=== PATIENT | male | born 1955 | race Caucasian/White ===

== ENCOUNTER 2023-05-13 11:25 | Inpatient (IN) | payer MEDICARE ==
[~2023-05-13] VITALS: Ht 182.9 cm; Wt 75.6 kg
[2023-05-13 12:38] LABS: BASOPHILS # (AUTO) 0.1 X10'3 (0-0.2); EOSINOPHILS # (AUTO) 0.1 X10'3 (0-0.9); EOSINOPHILS % (AUTO) 1.8 % (0-6); NEUTROPHILS # (AUTO) 4.5 X10'3 (1.8-7.7)
[2023-05-13 12:39] LABS: BASOPHILS % (AUTO) 0.9 % (0-1); HEMATOCRIT 42.5 % (42.0-52.0); HEMOGLOBIN 14.2 g/dl (14.0-17.9); LYMPHOCYTES # (AUTO) 0.8 X10'3 (1.1-4.8); LYMPHOCYTES % (AUTO) 13.1 % (21-51); MEAN CORPUSCULAR HEMOGLOBIN 32.6 PG (27.0-31.0); MEAN CORPUSCULAR HGB CONC 33.5 g/dL (33.0-36.5); MEAN CORPUSCULAR VOLUME 97.2 FL (78-98); MONOCYTES # (AUTO) 0.8 X10'3 (0-0.9); MONOCYTES % (AUTO) 12.9 % (2-12); NEUTROPHILS % (AUTO) 71.3 % (42-75); PLATELET COUNT 177 X10'3 (140-440); RED BLOOD COUNT 4.37 X10'6 (4.70-6.10); RED CELL DISTRIBUTION WIDTH 13.1 % (11.5-14.5); WHITE BLOOD COUNT 6.3 X10'3 (4.5-11.0)
[2023-05-13 12:53] LABS: ALANINE AMINOTRANSFERASE 20 U/L (12-78); ALBUMIN 3.6 G/DL (3.4-5.0); ALKALINE PHOSPHATASE 68 IU/L (46-116); ANION GAP 13 (8-16); ASPARTATE AMINO TRANSFERASE 21 U/L (10-37); BILIRUBIN,TOTAL 0.6 MG/DL (0.1-1.0); BLOOD UREA NITROGEN 28 MG/DL (7-18); CALCIUM 8.8 MG/DL (8.5-10.1); CHLORIDE 107 MMOL/L (99-107); GLUCOSE 103 MG/DL (70-104); POTASSIUM 3.6 MMOL/L (3.5-5.1); SODIUM 143 MMOL/L (135-145); TOTAL CARBON DIOXIDE 23.5 MMOL/L (24-32); TOTAL PROTEIN 7.2 G/DL (6.4-8.2); eCRCL 27 ML/MIN; eGFR 23 ML/MIN
[2023-05-13 13:00] LABS: PRO BRAIN NATRIURETIC PEPTIDE 8000 PG/ML (0-125)
[2023-05-13] MEDS: aspirin 81mg tab.chew PO ONE (13:12)
[2023-05-13] MEDS: nitroGLYCERIN 0.4mg/hour patch TD ONE (13:12)
[2023-05-13] MEDS: cloNIDine 0.1 mg tablet PO ONE (14:15)
[2023-05-13] MEDS: NIFEdipine XL 30mg tablet PO ONE (15:00)
[2023-05-13] MEDS ORDERED: mag hydrox/Alum hydrox/simeth 30ml oral suspension PO PRN (15:05)
[2023-05-13] MEDS ORDERED: magnesium hydroxide 30ml (MOM) UD suspension PO PRN (15:05)
[2023-05-13] MEDS ORDERED: HYDROcodone/acetaminophen 5mg/325mg tablet PO PRN (15:05)
[2023-05-13] MEDS ORDERED: magnesium 4gm in 100ml NS 100 ML IV PRN (15:05)
[2023-05-13] MEDS ORDERED: magnesium 2GM in 50ml NS 50 ML IV PRN (15:05)
[2023-05-13] MEDS ORDERED: HYDROcodone/acetaminophen 10/325mg tab PO PRN (15:05)
[2023-05-13] MEDS ORDERED: potassium Cl 40MEQ/1/2NS 520ml 520 ML IV PRN (15:05)
[2023-05-13] MEDS: PERFLUTREN PROTEIN-A MICROSPHR (Optison) 0.22 MG/ML 3ML VIAL IV ONE (15:05)
[2023-05-13] MEDS ORDERED: potassium Cl 20 mEq SR tablet PO PRN ×2 (15:05)
[2023-05-13] MEDS ORDERED: acetaminophen 325mg tablet PO PRN ×2 (15:05)
[2023-05-13] MEDS ORDERED: ondansetron/PF 4mg/2ml inj IV PRN (15:05)
[2023-05-13] MEDS: hydrALAZINE 25 MG tablet PO PRN (18:28)
[2023-05-13] MEDS: nicotine 21mg patch - 24 hr TD SCH (18:28)
[2023-05-13] MEDS: normal saline 1000ml 1,000 ML IV SCH (19:34)
[2023-05-13] MEDS: K and/or MAG REPLACEMENT MC SCH (19:35)
[2023-05-13] MEDS: heparin, porcine 5000 units/ml vial SQ SCH (19:38)
[2023-05-13] MEDS: docusate sod 100mg capsule PO SCH (19:38)
[2023-05-13 22:00] VITALS: BP 151/78; PULSE 70; RESP 18; TEMP 97.7; O2SAT 96
[2023-05-14 02:00] VITALS: BP 158/97; PULSE 70; RESP 18; TEMP 98.1; O2SAT 97
[2023-05-14 03:21] LABS: BASOPHILS # (AUTO) 0.1 X10'3 (0-0.2); BASOPHILS % (AUTO) 1.2 % (0-1); EOSINOPHILS # (AUTO) 0.3 X10'3 (0-0.9); EOSINOPHILS % (AUTO) 4.7 % (0-6); HEMATOCRIT 40.3 % (42.0-52.0); HEMOGLOBIN 13.7 g/dl (14.0-17.9); LYMPHOCYTES # (AUTO) 1.4 X10'3 (1.1-4.8); LYMPHOCYTES % (AUTO) 22.3 % (21-51); MEAN CORPUSCULAR HEMOGLOBIN 33.1 PG (27.0-31.0); MEAN CORPUSCULAR VOLUME 97.4 FL (78-98); MEAN PLATELET VOLUME 8.4 FL (7.4-10.4); MONOCYTES % (AUTO) 15.1 % (2-12); NEUTROPHILS # (AUTO) 3.6 X10'3 (1.8-7.7); NEUTROPHILS % (AUTO) 56.7 % (42-75); PLATELET COUNT 164 X10'3 (140-440); RED BLOOD COUNT 4.14 X10'6 (4.70-6.10); RED CELL DISTRIBUTION WIDTH 13.2 % (11.5-14.5); WHITE BLOOD COUNT 6.4 X10'3 (4.5-11.0)
[2023-05-14 03:35] LABS: ALANINE AMINOTRANSFERASE 22 U/L (12-78); ALBUMIN 3.3 G/DL (3.4-5.0); ALKALINE PHOSPHATASE 67 IU/L (46-116); ANION GAP 12 (8-16); ASPARTATE AMINO TRANSFERASE 21 U/L (10-37); BILIRUBIN,TOTAL 0.3 MG/DL (0.1-1.0); BLOOD UREA NITROGEN 32 MG/DL (7-18); BUN/CREATININE RATIO 12.5 (10.0-20.0); CHLORIDE 108 MMOL/L (99-107); CHOL/HDL RATIO 4.2 (0.00-4.99); CHOLESTEROL 152 MG/DL (0-200); CREATININE 2.56 MG/DL (0.60-1.10); GLUCOSE 98 MG/DL (70-104); HDL CHOLESTEROL 36 MG/DL (35-60); LDL CHOLESTEROL 94 MG/DL (50-100); MAGNESIUM 2.2 MG/DL (1.5-2.4); POTASSIUM 3.5 MMOL/L (3.5-5.1); SODIUM 143 MMOL/L (135-145); TOTAL CARBON DIOXIDE 22.8 MMOL/L (24-32); TOTAL PROTEIN 6.7 G/DL (6.4-8.2); TRIGLYCERIDES 121 MG/DL (20-135); eCRCL 29 ML/MIN; eGFR 25 ML/MIN
[2023-05-14 07:13] VITALS: BP 162/87; PULSE 76; RESP 18; TEMP 98.4; O2SAT 96
[2023-05-14] MEDS ORDERED: NICO-687 TD (07:31)
[2023-05-14] MEDS ORDERED: NIFE90TA70 PO (07:31)
[2023-05-14 08:00] VITALS: RESP 18; O2SAT 96
[2023-05-14] MEDS: NIFEdipine XL 30mg tablet PO SCH (08:01)
[2023-05-14] MEDS ORDERED: HYDR50TA46 PO (08:53)
== END 2023-05-14 10:01 | disposition home or self-care (01) | DRG 280 ==
LOC: ER 11:26 → ED HOLD 15:15 → PCU 3S 21:47
PROVIDERS: ADMIT Family Medicine; ATTEND Family Medicine
DX: I16.1 Hypertensive emergency (principal); I21.A1 Myocardial infarction type 2; N17.0 Acute kidney failure with tubular necrosis; N18.9 Chronic kidney disease, unspecified; F17.210 Nicotine dependence, cigarettes, uncomplicated; E78.5 Hyperlipidemia, unspecified; F10.10 Alcohol abuse, uncomplicated; E11.22 Type 2 diabetes mellitus with diabetic chronic kidney disease; I12.9 Hypertensive chronic kidney disease with stage 1 through stage 4 chronic kidney disease, or unspecified chronic kidney disease; Z79.899 Other long term (current) drug therapy
CPT/HCPCS: 36415; 71045; 80053; 80061; 82948; 83735; 83880; 84484; 85025; 87081; 93005; 93306; 99285; G0378; J1644; J7030